=== PATIENT | female | born 1980 | race African-American/Black ===

== ENCOUNTER 2019-04-19 10:59 | Emergency (ER) | payer MEDICAID ==
[~2019-04-19] VITALS: Ht 152.4 cm; Wt 90.7 kg
[2019-04-19] MEDS ORDERED: GLIPIZIDE5 MG ORAL (11:14)
[2019-04-19] MEDS ORDERED: AMLODIPINE BESYL5 MG ORAL ×2 (11:14→14:42)
[2019-04-19] MEDS ORDERED: METFORMIN HCL1000 M1 ORAL (11:14)
[2019-04-19] MEDS ORDERED: LISINOPRIL10 MG ORAL (11:14)
[2019-04-19 11:28] VITALS: BP 179/93
--- NOTE | 2019-04-19 11:39 | Emergency Room Report ---
History of Present Illness General Chief Complaint: Chest Pain Source: Patient Present Illness HPI Patient presents with headache for 4 days. In addition she is felt nausea without any vomiting. She is also had some chest pain over the last 2 days. More pressure in her chest. Headache and chest pain are rated 4/10. Headache is pressure bitemporal. Constant. Gradual onset. Chest pain is not exertional. This began after she took phentermine for weight loss. She felt her body reacting to it. Unable to fill her amlodipine and her blood pressure has been high recently. She moves her bowels 4 times a day which is normal for her. Dysuria. Last menstruation was last month and normal for her. She states she always has some abnormality with her blood count. She usually gets iron infusions. It is been over a year since the last time this happened. No fevers, chills, sore throat, palpitations, dysuria, abdominal pain, shortness of breath, joint pain, rashes, depression, anxiety, visual changes, dizziness, headache. Allergies: Coded Allergies: No Known Allergies (Unverified , 04/19/19) Patient History Social History: Denies: smoking, alcohol use, drug use Social History Narrative Recently moved to [place] from [place] Last Menstrual Period: 03/2019 Now: No Reviewed Nursing Documentation: PMH: Agreed; PSxH: Agreed Nursing Documentation-PMH Past Medical History: No History, Except For Hx Hypertension: Yes Hx Diabetes: Yes Review of Systems All Other Systems: negative except mentioned in HPI Physical Exam Vital Signs Date Time Temp Pulse Resp B/P (MAP) Pulse Ox O2 Delivery O2 Flow Rate FiO2 04/19/19 11:05 98.1 86 18 183/102 (129) 100 Room Air Sp02 EP Interpretation: reviewed, normal General Appearance: well appearing, no apparent distress, GCS 15, non-toxic Head: normocephalic Eyes: bilateral eye normal inspection, bilateral eye PERRL, bilateral eye EOMI ENT: moist mucus membranes Neck: supple Respiratory: lungs clear, normal breath sounds Cardiovascular #1: regular rate, rhythm, no edema Cardiovascular #2: 2+ radial (L) Gastrointestinal: normal inspection, normal bowel sounds, non tender, no mass, non-distended Genitourinary: no CVA tenderness Musculoskeletal: back normal, normal range of motion, gait/station normal Neurologic: alert, motor strength/tone normal, gear grinder III-XII nml as tested, oriented x3, sensory intact, cerebellar normal, speech normal Psychiatric: mood/affect normal Skin: no rash, warm/dry Medical Decision Making Diagnostic Impression: Primary Impression: Chest pain Qualified Codes: R07.9 - Chest pain, unspecified Additional Impressions: Headache Qualified Codes: R51 - Headache Leukocytosis Qualified Codes: D72.828 - Other elevated white blood cell count Elevated platelet count Microcytosis Hypertension Qualified Codes: I10 - Essential (primary) hypertension ER Course Patient presents with hypertension, chest pain and headache with nausea. Differential includes hypertensive urgency, renal failure, acute myocardial infarction, reflux esophagitis amongst others. Evaluation with EKG, chest x- ray and labs. Patient will be treated with Reglan and Benadryl. Patient is placed on school lunch monitor. She will be given a dose of her amlodipine. EKG no injury. Chest x-ray unremarkable. Labs with leukocytosis, microcytes, elevated platelets. Nausea improved however the patient still has headache. Iron infusion and given and Toradol. Headache better. Some chest pressure. Blood pressures improved. No medical emergency at this time. Discussed treatment plan with patient. She is stable for outpatient observation and treatment. Laboratory Tests Test 04/19/19 11:50 04/19/19 12:55 White Blood Count 14.7 K/UL (4.8-10.8) H Red Blood Count 4.87 M/UL (4.20-5.40) Hemoglobin 11.5 G/DL (12.0-16.0) L Hematocrit 36.1 % (37.0-47.0) L Mean Corpuscular Volume 74 FL (80-99) L Mean Corpuscular Hemoglobin 23.5 PG (27.0-31.0) L Mean Corpuscular Hemoglobin Concent 31.8 G/DL (32.0-36.0) L Red Cell Distribution Width 13.2 % (11.6-14.8) Platelet Count 644 K/UL (150-450) H Mean Platelet Volume 5.2 FL (6.5-10.1) L Neutrophils (%) (Auto) % (45.0-75.0) Lymphocytes (%) (Auto) % (20.0-45.0) Monocytes (%) (Auto) % (1.0-10.0) Eosinophils (%) (Auto) % (0.0-3.0) Basophils (%) (Auto) % (0.0-2.0) Differential Total Cells Counted 100 Neutrophils % (Manual) 70 % (45-75) Lymphocytes % (Manual) 23 % (20-45) Monocytes % (Manual) 5 % (1-10) Eosinophils % (Manual) 2 % (0-3) Basophils % (Manual) 0 % (0-2) Band Neutrophils 0 % (0-8) Platelet Estimate Increased H Platelet Morphology Normal Anisocytosis 1+ Microcytosis 2+ Prothrombin Time 9.7 SEC (9.30-11.50) Prothrombin Time INR 0.9 (0.9-1.1) PTT 32 SEC (23-33) Sodium Level 137 MMOL/L (136-145) Potassium Level 4.5 MMOL/L (3.5-5.1) Chloride Level 104 MMOL/L (98-107) Carbon Dioxide Level 24 MMOL/L (21-32) Anion Gap 10 mmol/L (5-15) Blood Urea Nitrogen 11 mg/dL (7-18) Creatinine 1.0 MG/DL (0.55-1.30) Estimate Glomerular Filtration Rate > 60 mL/min (>60) Glucose Level 122 MG/DL (74-106) H Calcium Level 8.9 MG/DL (8.5-10.1) Total Bilirubin 0.2 MG/DL (0.2-1.0) Aspartate Amino Transferase (AST) 13 U/L (15-37) L Alanine Aminotransferase (ALT) 19 U/L (12-78) Alkaline Phosphatase 99 U/L (46-116) Total Creatine Kinase 91 U/L (26-308) Troponin I 0.000 ng/mL (0.000-0.056) Pro-B-Type Natriuretic Peptide 123 pg/mL (0-125) Total Protein 7.1 G/DL (6.4-8.2) Albumin 3.7 G/DL (3.4-5.0) Globulin 3.4 g/dL Albumin/Globulin Ratio 1.1 (1.0-2.7) Lipase 156 U/L (73-393) Urine Color Pale yellow Urine Appearance Clear Urine pH 6 (4.5-8.0) Urine Specific [place] 1.020 (1.005-1.035) Urine Protein 3+ (NEGATIVE) H Urine Glucose (UA) Negative (NEGATIVE) Urine Ketones 1+ (NEGATIVE) H Urine Blood 1+ (NEGATIVE) H Urine Nitrite Negative (NEGATIVE) Urine Bilirubin Negative (NEGATIVE) Urine Urobilinogen Normal MG/DL (0.0-1.0) Urine Leukocyte Esterase Negative (NEGATIVE) Urine RBC 2-4 /HPF (0 - 2) H Urine WBC 0-2 /HPF (0 - 2) Urine Squamous Epithelial Cells Few /LPF (NONE/OCC) Urine Bacteria Few /HPF (NONE) Urine Opiates Screen Negative (NEGATIVE) Urine Barbiturates Screen Negative (NEGATIVE) Phencyclidine (PCP) Screen Negative (NEGATIVE) Urine Amphetamines Screen Negative (NEGATIVE) Urine Benzodiazepines Screen Negative (NEGATIVE) Urine Cocaine Screen Negative (NEGATIVE) Urine Marijuana (THC) Screen Positive (NEGATIVE) H Microbiology Date/Time Source Procedure Growth Status 04/19/19 14:00 Nose - Final Complete 04/19/19 14:00 Nose - Final Complete EKG Diagnostic Results Rate: normal Rhythm: NSR ST Segments: no acute changes Rhythm Strip Diag. Results EP Interpretation: yes Rhythm: NSR, no PVC's, no ectopy Chest X-Ray Diagnostic Results Chest X-Ray Diagnostic Results : Chest X-Ray Ordered: Yes # of Views/Limited/Complete: 1 View Indication: Chest Pain Interpretation: no consolidation, no effusion, no pneumothorax Impression: No acute disease Electronically Signed by: Electronically signed by Heath Bran MD Last Vital Signs Date Time Temp Pulse Resp B/P (MAP) Pulse Ox O2 Delivery O2 Flow Rate FiO2 04/19/19 15:32 98.2 78 18 158/92 100 Room Air Status: improved Disposition: HOME, SELF-CARE Condition: Improved Scripts Hydrocodone Bit/Acetaminophen 5-325* (NORCO 5-325*) 1 Each Tablet 1 TAB ORAL Q6H PRN for For Pain, #8 TAB 0 Refills Prov: Heath Bran MD 04/19/19 Multivitamin/Iron/Folic Acid ([facility] TAB) 1 Each Tablet 1 EACH PO DAILY, #30 TAB Prov: Heath Bran MD 04/19/19 Ondansetron Odt* (ZOFRAN ODT*) 4 Mg Tab.rapdis 4 MG BC EVERY 8 HOURS, #6 TAB 0 Refills Prov: Heath Bran MD 04/19/19 Amlodipine Besylate* (AMLODIPINE BESYLATE*) 5 Mg Tablet 5 MG ORAL DAILY, #30 TAB Prov: Heath Bran MD 04/19/19 Heath Bran MD Apr 19, 2019 11:39
[2019-04-19 12:12] LABS: HEMATOCRIT 36.1 % (37.0-47.0); HEMOGLOBIN 11.5 G/DL (12.0-16.0); MEAN CORPUSCULAR VOLUME 74 FL (80-99); PLATELET COUNT 644 K/UL (150-450); RED BLOOD COUNT 4.87 M/UL (4.20-5.40); RED CELL DISTRIBUTION WIDTH 13.2 % (11.6-14.8); WHITE BLOOD COUNT 14.7 K/UL (4.8-10.8)
[2019-04-19 12:22] LABS: INR 0.9 (0.9-1.1)
[2019-04-19 12:26] LABS: ANION GAP 10 mmol/L (5-15); BLOOD UREA NITROGEN 11 mg/dL (7-18); CALCIUM 8.9 MG/DL (8.5-10.1); CARBON DIOXIDE 24 MMOL/L (21-32); CHLORIDE 104 MMOL/L (98-107); POTASSIUM 4.5 MMOL/L (3.5-5.1); SODIUM 137 MMOL/L (136-145)
--- NOTE | 2019-04-19 12:32 | Diagnostic Imaging Report ---
Indication: Chest pain Technique: One view of the chest Comparison: none Findings: Lungs and pleural spaces are clear. Heart size is normal. Loop recorder overlies the heart Impression: No acute process
[2019-04-19 12:38] LABS: ALANINE AMINOTRANSFERASE 19 U/L (12-78); ALBUMIN 3.7 G/DL (3.4-5.0); ALBUMIN/GLOBULIN RATIO 1.1 (1.0-2.7); ALKALINE PHOSPHATASE 99 U/L (46-116); ASPARTATE AMINO TRANSFERASE 13 U/L (15-37); BILIRUBIN,TOTAL 0.2 MG/DL (0.2-1.0); CREATINE KINASE 91 U/L (26-308)
[2019-04-19 13:44] LABS: APPEARANCE,URINE CLEAR; BILIRUBIN, URINE NEGATIVE (NEGATIVE); COLOR,URINE PALE YELLOW; GLUCOSE, URINE (UA) NEGATIVE (NEGATIVE); KETONES,URINE 1+ (NEGATIVE); LEUKOCYTE ESTERASE ,URINE NEGATIVE (NEGATIVE); NITRITE,URINE NEGATIVE (NEGATIVE); PH,URINE 6 (4.5-8.0); PROTEIN,URINE 3+ (NEGATIVE); UROBILINOGEN,URINE NORMAL MG/DL (0.0-1.0)
[2019-04-19] MEDS ORDERED: Ketorolac 30mg Inj IV ONE (13:45)
[2019-04-19] MEDS ORDERED: CENTURY ULTIMA1 EAC3 PO (14:42)
[2019-04-19] MEDS ORDERED: ONDANSETRON ODT4 MG BC (14:42)
[2019-04-19] MEDS ORDERED: NORCO 5-325 TA1 EACH ORAL (14:42)
[2019-04-19 15:00] VITALS: BP 158/92
[2019-04-19 15:32] VITALS: BP 158/92
--- NOTE | 2019-04-20 12:47 | Cardiology Report ---
APPROVED REPORT EKG Measurement Heart [id number] Normal sinus rhythm Normal ECG
== END 2019-04-19 15:10 | disposition home or self-care (01) ==
LOC: EMR 11:49
DX: R51 Headache (principal); R11.0 Nausea; R07.9 Chest pain, unspecified; R30.0 Dysuria; I10 Essential (primary) hypertension; E11.9 Type 2 diabetes mellitus without complications; D72.828 Other elevated white blood cell count; R79.89 Other specified abnormal findings of blood chemistry
CPT/HCPCS: 36415; 71045; 80053; 80307; 81003; 82550; 83690; 83880; 84484; 85007; 85025; 85610; 85730; 86710; 93005; 96365; 96375; J1756; J1885; J2405; Z7502; 99284